=== PATIENT | female | born 1995 | race Caucasian/White ===

== ENCOUNTER 2018-10-09 16:04 | Emergency (ER) | payer BC ==
[2018-10-09 16:28] VITALS: BP 114/80
--- NOTE | 2018-10-09 16:45 | UC ---
Ear Complaint HPI - HPI Summary HPI Summary: Patient presents to urgent care reporting bilateral ear pain left worse than right. Patient states it started approximately 3 days ago. Patient states she first noticed it after she put her head under water in the bathtub. Patient states he felt plugged up. Patient has applied multiple yggx-jhu-zqbolmv drops including peroxide but states no dysuria plugged. Patient with mild discomfort. Patient states she's had some drainage but is interpreted. She put another. No itching. No fevers or chills. No sinus congestion or sore throat. Patient's medications reviewed this visit. Patient states she is not . - History of Current Complaint Chief Complaint: UCEar Stated Complaint: LT EAR COMPLAINT Time Seen by Provider: 10/09/18 16:36 Hx Obtained From: Patient Hx Last Menstrual Period: 01/2018 nexplanon Pain Intensity: 4 - Allergies/Home Medications Allergies/Adverse Reactions: Allergies Allergy/AdvReac Type Severity Reaction Status Date / Time No Known Allergies Allergy Verified 10/09/18 16:25 Home Medications: Home Medications Etonogestrel [Nexplanon] 68 mg IMPLANT ONCE 10/09/18 [History Confirmed 10/09/18 ] PMH/Surg Hx/FS Hx/Imm Hx Previously Healthy: Yes - Surgical History Surgical History: None - Family History Known Family History: Positive: Non-Contributory - Social History Occupation: Student Lives: Dormitory/Roommates Alcohol Use: None Substance Use Type: None Smoking Status (MU): Never Smoked Tobacco Review of Systems All Other Systems Reviewed And Are Negative: Yes Constitutional: Positive: Negative Skin: Positive: Negative ENT: Positive: Ear Ache Physical Exam - Summary Physical Exam Summary: Vital Signs Reviewed: Yes A+Ox3, no distress Eyes: Conjunctiva Clear, YULISSA. EOM intact and full ENT: Hearing grossly normal canals bilateral with copious soft cerumen and fluid - attempted to manual debride - unable to clear, turbiantes wnl, mmoist, uvula midline, no exudate, no erythema Neck: Positive: Supple Respiratory: Positive: No respiratory distress, No accessory muscle use + CTA throughout no w/r Cardiovascular: RRR nl s1, s2 no m/r CBT <2 sec abd soft + BS nt/nd no guarding, no distension Musculoskeletal Exam: CHEN x 4 without difficulty Strength Intact, ROM Intact Neurological: Positive: Alert, + sensation throughout Psychological: Positive: Normal Response To Family Skin: Positive: no rash, no ecchymosis Triage Information Reviewed: Yes Vital Signs: Initial Vital Signs Temp 98.6 F 10/09/18 16:23 Pulse 99 10/09/18 16:23 Resp 16 10/09/18 16:23 BP 114/80 10/09/18 16:23 Pulse Ox 100 10/09/18 16:23 Re-Evaluation - Re-Evaluation Second Eval Change: Improved - TMs bilaterally feet visualized. No fluid no erythema. Canals clean dry without any concern for infection. Discussed with patient to use deep breaths drops as well as xylq-trb-rwmuhdx irrigation products. Patient states understanding comfortable with plan. No other treatment today. Ear Complaint Course/Dx - Course Course Of Treatment: Patient presents to urgent care for evaluation of her ear left more than right. Patient states she Y in the bathtub the day and since that time feels like the complaint. Patient has but multiple motl-zbl-sdlxhll products in her ear with little improvement. Patient states her some pressure there and some drainage but she is unsure what is infected or whether it's wax coming out. On exam vital signs are stable. Patient unable to visualize TM due to copious soft secretions and bilateral ears. Unable to manually debrided. We'll ask a nurse to irrigate. The reassess. Patient comfortable in agreement with plan. - Differential Dx/Diagnosis Provider Diagnosis: Cerumen impaction Discharge - Sign-Out/Discharge Documenting (check all that apply): Patient Departure All imaging exams completed and their final reports reviewed: No Studies - Discharge Plan Condition: Stable Disposition: HOME Prescriptions: Carbamide Peroxide 6.5% OTIC* [DEBROX 6.5% Otic*] 5 drop BOTH EARS DAILY #1 bottle Patient Education Materials: Cerumen Impaction (ED) Referrals: [facility] [Outside] No Primary Care Phys,NOPCP [Primary Care Provider] - Additional Instructions: - apply ear drops daily to soften ear wax -Use over the counter device to irrigate ears at home - avoid sticking Q tips or objects in your ear - contact your doctor or return with questions or concerns - Billing Disposition and Condition Condition: STABLE Disposition: Home
== END 2018-10-09 17:39 | disposition home or self-care (01) ==
LOC: UCCORT 16:04
DX: H61.23 Impacted cerumen, bilateral (principal)
CPT/HCPCS: 99203; G0463